=== PATIENT | male | born 1960 | race Caucasian/White ===

== ENCOUNTER → 2017-03-23 | Outpatient (CLI) | payer BC ==
[~2017-03-23] MED LIST: AMBIEN 5MG TABLE5 MG PO; ASPI325T6 PO; CIPRO 500MG TA500 MG PO; CLINDAMYCIN PO; COLACE 100100 MG/CAP PO; CYMBALTA PO; DAZIDOX20 MG PO; FENTANYL 25 MCG; FLOMAX 0.40.4 MG/CAP PO; FLOMAX PO; HYDROCODONE/APAP; HYDROCODONE/APAP PO; JALYN 0.5 MG-0.1 CAP PO; LAMOTRIGINE100 MG PO; LEXAPRO10 MG PO; LIPITOR 40MG TA40 MG PO; LORTAB 7.5/5001 TAB PO; MULTIPLE VITAMI1 CAP PO; NAPROSYN500 MG PO; NORCO 325 MG-7.1 TAB PO; OPANA ER20 MG PO; PERCOCET 325 MG1 TA2 PO; PROBIOTIC FORMU1 CAP PO; PROPYLTHIOURACIL; PYRIDIUM200 M1 PO; RESTORIL30 MG PO; SEPTRA DS 8001 TAB PO; TRILIPIX 135MG PO; VESICARE 5MG5 MG PO; VITAMINC1000TA; [UNRECOGNIZED DRUG - OTHER]; [UNRECOGNIZED DRUG - REMARK]
== END ==
LOC: BHSO 11:05
DX: F33.1 Major depressive disorder, recurrent, moderate (principal)

== ENCOUNTER → 2017-07-11 | Outpatient (CLI) | payer BC | LOC: MHCPAIN 08:31 | DX: G89.29 Other chronic pain (principal); M47.817 Spondylosis without myelopathy or radiculopathy, lumbosacral region; M53.3 Sacrococcygeal disorders, not elsewhere classified; M96.1 Postlaminectomy syndrome, not elsewhere classified | CPT/HCPCS: G0463 ==

== ENCOUNTER → 2017-07-13 | Outpatient (CLI) | payer BC | LOC: MHCPAIN 11:51 | DX: M53.3 Sacrococcygeal disorders, not elsewhere classified (principal); Z98.1 Arthrodesis status | CPT/HCPCS: G0260; J1040; Q9967 ==

== ENCOUNTER → 2017-08-21 | Outpatient (CLI) | payer BC | LOC: MHCPAIN 11:08 | DX: G89.29 Other chronic pain (principal); M47.27 Other spondylosis with radiculopathy, lumbosacral region; M53.3 Sacrococcygeal disorders, not elsewhere classified; M96.1 Postlaminectomy syndrome, not elsewhere classified | CPT/HCPCS: G0463 ==

== ENCOUNTER → 2017-09-12 | Outpatient (CLI) | payer BC | LOC: BHSO 09:10 | DX: F33.1 Major depressive disorder, recurrent, moderate (principal) | CPT/HCPCS: G0463 ==

== ENCOUNTER → 2018-01-11 | Outpatient (CLI) | payer MEDICARE, BC | LOC: BHSO 09:43 | DX: F31.81 Bipolar II disorder (principal) | CPT/HCPCS: G0463 ==

== ENCOUNTER → 2018-02-26 | Outpatient (CLI) | payer MEDICARE, BC | LOC: BHSO 08:25 | DX: F31.81 Bipolar II disorder (principal) ==

== ENCOUNTER → 2018-06-11 | Outpatient (CLI) | payer MEDICARE, BC | LOC: BHSO 07:58 | DX: F31.81 Bipolar II disorder (principal) | CPT/HCPCS: G0463 ==

== ENCOUNTER → 2018-12-10 | Outpatient (CLI) | payer MEDICARE, BC | LOC: BHSO 07:57 | DX: F31.81 Bipolar II disorder (principal) | CPT/HCPCS: G0463 ==

== ENCOUNTER → 2018-12-31 | Outpatient (CLI) | payer MEDICARE, BC | LOC: COL.RAD 14:00 | DX: G44.219 Episodic tension-type headache, not intractable (principal) ==

== ENCOUNTER 2019-01-29 21:49 | Emergency (ER) | payer MEDICARE, BC ==
[~2019-01-29] VITALS: Ht 170.2 cm; Wt 103.6 kg
[2019-01-29 21:55] VITALS: BP 145/78; TEMP 98.7
[2019-01-29 22:39] LABS: BASO % 0.6 % (0.0-2.0); EOS # 0.1 (0.0-0.7); EOS % 2.7 % (0-4.0); GRAN # 3.6 (1.4-6.5); GRAN % 68.8 % (42.2-75.2); HEMATOCRIT 41.9 % (42.0-52.0); HEMOGLOBIN 14.3 g/dl (13.5-18.0); LYMPH # 1.2 (1.2-3.4); LYMPH % 22.3 % (20.0-51.0); MEAN CELL VOLUME 85 fl (80.0-100.0); MEAN CORPUSCULAR HEMOGLOBIN 29 pg (27.0-31.0); MEAN CORPUSCULAR HGB CONC 34 g/dl (33.0-37.0); MEAN PLATELET VOLUME 8.2 fl (7.4-10.4); MONO # 0.3 (0.1-0.6); MONO % 5.2 % (1.7-9.3); PLATELET COUNT 295 K/mm3 (130-400); RED BLOOD COUNT 4.96 M/mm3 (4.20-5.60); REDCELL DISTRIBUTION WIDTH-CV 13.1 % (11.5-14.5)
[2019-01-29 22:52] LABS: ACETAMINOPHEN < 10 ug/mL (10-30); ALANINE AMINOTRANSFERASE 44 U/L (21-72); ALBUMIN 4.3 gm/dL (3.5-5.0); ALCOHOL(ethanol),MEDICAL < 10 mg/dL; ALKALINE PHOSPHATASE 82 U/L (50-136); ANION GAP 11 mmol/L (7-16); AST,SGOT 36 U/L (15-37); BILIRUBIN,TOTAL 0.5 mg/dL (0.0-1.0); BLOOD UREA NITROGEN 22 mg/dL (9-20); C-REACTIVE PROTEIN < 0.5 mg/dL (0.0-0.9); CALCIUM 10.1 mg/dL (8.4-10.2); CARBON DIOXIDE 25 mmol/L (22-30); CHLORIDE 107 mmol/L (98-107); CREATININE, serum 1.01 (0.66-1.25); GLUCOSE 169 mg/dL (74-106); POTASSIUM 3.7 mmol/L (3.4-5.0); SALICYLATE < 1.0 mg/dL; SODIUM 143 mmol/L (137-145); TOTAL PROTEIN 7.1 gm/dL (6.4-8.2)
[2019-01-29 23:01] LABS: ERYTHROCYTE SEDIMENTATION RATE 1 mm/hr (0-30)
[2019-01-30] MEDS ORDERED: LEXAPRO 10MG10 MG PO (00:07)
[2019-01-30] MEDS ORDERED: TRILIPIX 135MG PO (00:08)
[2019-01-30] MEDS ORDERED: LAMICTAL 100MG100 MG PO (00:08)
[2019-01-30] MEDS ORDERED: LIPITOR 40MG TA40 MG PO (00:09)
[2019-01-30] MEDS ORDERED: MEN'S MULTIVIT1 EAC1 PO (00:09)
[2019-01-30] MEDS ORDERED: VITAMINC1000TA (00:10)
[2019-01-30] MEDS ORDERED: PROBIOTIC-MAJOR PO (00:10)
[2019-01-30] MEDS ORDERED: MOBIC 7.5MG7.5 MG PO (00:11)
[2019-01-30] MEDS ORDERED: ROXICODONE15 MG PO (00:11)
[2019-01-30] MEDS ORDERED: FIORICET 325 MG1 TA1 PO (00:11)
[2019-01-30 00:20] VITALS: PULSE 66
== END 2019-01-30 00:20 | disposition home or self-care (01) ==
LOC: COL.ER 21:49
PROVIDERS: Emergency Medicine
DX: R51 Headache (principal); G89.29 Other chronic pain; I10 Essential (primary) hypertension; E78.00 Pure hypercholesterolemia, unspecified; F32.9 Major depressive disorder, single episode, unspecified
CPT/HCPCS: J2405; J3010; J7030

== ENCOUNTER → 2019-03-06 | Outpatient (CLI) | payer MEDICARE, BC ==
[~2019-03-06] MED LIST changes: +FIORICET 325 MG1 TA1 PO; +LAMICTAL 100MG100 MG PO; +LEXAPRO 10MG10 MG PO; +MEN'S MULTIVIT1 EAC1 PO; +MOBIC 7.5MG7.5 MG PO; +PROBIOTIC-MAJOR PO; +ROXICODONE15 MG PO
== END ==
LOC: COL.RAD 12:14
DX: M50.30 Other cervical disc degeneration, unspecified cervical region (principal); M50.21 Other cervical disc displacement, high cervical region; M25.78 Osteophyte, vertebrae; M48.02 Spinal stenosis, cervical region; M89.8X1 Other specified disorders of bone, shoulder

== ENCOUNTER → 2019-04-02 | Outpatient (CLI) | payer MEDICARE, BC | LOC: MHCPAIN 08:22 | DX: G89.29 Other chronic pain (principal); M47.812 Spondylosis without myelopathy or radiculopathy, cervical region; R51 Headache; M54.81 Occipital neuralgia | CPT/HCPCS: G0463 ==

== ENCOUNTER → 2019-04-04 | Outpatient (CLI) | payer MEDICARE, BC | LOC: MHCPAIN 12:49 | DX: M47.812 Spondylosis without myelopathy or radiculopathy, cervical region (principal); M54.12 Radiculopathy, cervical region ==

== ENCOUNTER 2019-05-13 11:36 | Emergency (ER) | payer MEDICARE, BC ==
[~2019-05-13] VITALS: Ht 170.2 cm; Wt 102.3 kg
[2019-05-13 12:02] VITALS: TEMP 97.1
[2019-05-13 12:35] LABS: BASO % 0.7 % (0.0-2.0); EOS # 0.2 (0.0-0.7); EOS % 3.6 % (0-4.0); GRAN # 2.6 (1.4-6.5); GRAN % 61.8 % (42.2-75.2); HEMATOCRIT 39.3 % (42.0-52.0); HEMOGLOBIN 13.4 g/dl (13.5-18.0); LYMPH # 1.1 (1.2-3.4); LYMPH % 26.1 % (20.0-51.0); MEAN CELL VOLUME 85 fl (80.0-100.0); MEAN CORPUSCULAR HEMOGLOBIN 29 pg (27.0-31.0); MEAN CORPUSCULAR HGB CONC 34 g/dl (33.0-37.0); MEAN PLATELET VOLUME 8.3 fl (7.4-10.4); MONO # 0.3 (0.1-0.6); MONO % 7.3 % (1.7-9.3); PLATELET COUNT 275 K/mm3 (130-400); RED BLOOD COUNT 4.63 M/mm3 (4.20-5.60); REDCELL DISTRIBUTION WIDTH-CV 13.1 % (11.5-14.5)
[2019-05-13 12:48] LABS: COLLECTION METHOD CLEAN CATCH
[2019-05-13 12:49] LABS: ALANINE AMINOTRANSFERASE 34 U/L (21-72); ALBUMIN 4.2 gm/dL (3.5-5.0); ALKALINE PHOSPHATASE 83 U/L (50-136); ANION GAP 7 mmol/L (7-16); AST,SGOT 32 U/L (15-37); BILIRUBIN,TOTAL 0.4 mg/dL (0.0-1.0); BLOOD UREA NITROGEN 17 mg/dL (9-20); CALCIUM 9.4 mg/dL (8.4-10.2); CARBON DIOXIDE 24 mmol/L (22-30); CHLORIDE 111 mmol/L (98-107); CREATININE, serum 0.91 (0.66-1.25); GLUCOSE 134 mg/dL (74-106); POTASSIUM 3.8 mmol/L (3.4-5.0); SODIUM 142 mmol/L (137-145); TOTAL PROTEIN 6.6 gm/dL (6.4-8.2)
[2019-05-13 12:52] LABS: ACETAMINOPHEN < 10 ug/mL (10-30); ALCOHOL(ethanol),MEDICAL < 10 mg/dL; SALICYLATE < 1.0 mg/dL
[2019-05-13 13:05] LABS: MUCOUS Present /lpf; PH 5 (5-8); SQUAMOUS EPITHELIAL None Seen /hpf; TRICYCLIC ANTIDEPRESS URINE NEGATIVE; URINE APPEARANCE Hazy; URINE BACTERIA None Seen /hpf; URINE BILIRUBIN Negative (NEGATIVE); URINE BLOOD Negative (NEGATIVE); URINE COLOR Yellow; URINE GLUCOSE Negative (NEGATIVE); URINE KETONE Negative (NEGATIVE); URINE LEUKOCYTE ESTERASE Negative (NEGATIVE); URINE NITRATE Negative (NEGATIVE); URINE PROTEIN(semi-quant) Negative (NEGATIVE); URINE RBC 0-2 /hpf
[2019-05-13] MEDS ORDERED: LAMICTAL150 MG PO (14:58)
[2019-05-13] MEDS ORDERED: ROXICODONE15 MG PO (15:01)
[2019-05-13 23:58] VITALS: BP 136/76; PULSE 74
== END 2019-05-13 23:56 ==
LOC: COL.ER 11:36
PROVIDERS: Nurse Practitioner
DX: R45.851 Suicidal ideations (principal); F32.9 Major depressive disorder, single episode, unspecified; E78.5 Hyperlipidemia, unspecified; Z88.2 Allergy status to sulfonamides

== ENCOUNTER → 2019-05-23 | Outpatient (CLI) | payer MEDICARE, BC ==
[~2019-05-23] MED LIST changes: +LAMICTAL150 MG PO
== END ==
LOC: BHSO 13:02
DX: F31.81 Bipolar II disorder (principal)
CPT/HCPCS: G0463

== ENCOUNTER → 2019-06-20 | Outpatient (CLI) | payer MEDICARE, BC | LOC: BHSO 09:38 | DX: F31.81 Bipolar II disorder (principal) | CPT/HCPCS: G0463 ==

== ENCOUNTER → 2019-07-23 | Outpatient (CLI) | payer MEDICARE, BC | LOC: BHSO 09:13 | DX: F31.81 Bipolar II disorder (principal) | CPT/HCPCS: G0463 ==

== ENCOUNTER → 2019-09-18 | Outpatient (CLI) | payer MEDICARE, BC | LOC: BHSO 08:44 | DX: F31.81 Bipolar II disorder (principal) | CPT/HCPCS: G0463 ==

== ENCOUNTER → 2020-03-10 | Outpatient (CLI) | payer MEDICARE, BC | LOC: BHSO 09:16 | DX: F31.81 Bipolar II disorder (principal) | CPT/HCPCS: G0463 ==

== ENCOUNTER → 2020-05-20 | Outpatient (CLI) | payer MEDICARE | LOC: BHSO 08:40 | DX: F31.81 Bipolar II disorder (principal) | CPT/HCPCS: G0463 ==

== ENCOUNTER 2020-09-24 14:00 | Outpatient (CLI) | payer MEDICARE ==
[~2020-09-24] VITALS: Ht 170.2 cm; Wt 100.0 kg
[2020-09-24] VITALS (9 sets, daily range): BP systolic 113–136; BP diastolic 67–76; PULSE 86–93; TEMP 98.8–99.7
[~2020-09-24 14:00] MED LIST changes: -MOBIC 7.5MG7.5 MG PO; +MOBIC15 MG PO
[2020-09-24] MEDS ORDERED: WELLBUTRIN XL300 M1 PO (15:05)
[2020-09-24] MEDS ORDERED: EFFEXOR XR75 MG/CAP PO (15:05)
[2020-09-24] MEDS ORDERED: ABILIFY 10MG TA10 MG PO (15:06)
--- NOTE | 2020-09-24 16:32 | NUR ---
TONEY SHIELDS WAS JUST IN TO ASSESS PATIENT.
--- NOTE | 2020-09-24 18:00 | NUR ---
Report was called to [place] SPANN on medical. [facility] after completion of BAM infusion and monitoring. Pt tolerated infusion well without any adverse reaction. Chest xray, lab draw, ekg, abg draw, and initiation of initial dose of decadron, IV fluids and a dose of zofran were completed prior to pt's transfer to floor. .
== END 2020-09-24 18:00 | disposition other institution (70) ==
LOC: EUO 14:00 → MEDICAL 16:18 → EUO 18:00
DX: U07.1 COVID-19 (principal)
CPT/HCPCS: J7050

== ENCOUNTER 2020-09-24 16:18 | Inpatient (IN) | payer MEDICARE ==
[~2020-09-24] VITALS: Ht 170.2 cm; Wt 90.9 kg
[~2020-09-24 16:18] MED LIST changes: +ABILIFY 10MG TA10 MG PO; +EFFEXOR XR75 MG/CAP PO; +WELLBUTRIN XL300 M1 PO
[2020-09-24 17:40] LABS: ARTERIAL BLD GAS O2 SATURATION 91.2 % (92-100); ARTERIAL BLD GAS TCO2 CT 23.5; ARTERIAL BLOOD GAS BASE EXCESS -0.1 (-2-2); ARTERIAL BLOOD GAS HCO3 22.5 meq/L (22-26); ARTERIAL BLOOD GAS PCO2 31.2 mmHg (35-45); ARTERIAL BLOOD GAS PO2 57.5 mmHg (80-100); ARTERIAL BLOOD GAS pH 7.48 (7.35-7.45)
[2020-09-24 17:49] LABS: BASO % 0.2 % (0.0-2.0); GRAN # 3.8 (1.4-6.5); GRAN % 81.3 % (42.2-75.2); HEMATOCRIT 41.4 % (42.0-52.0); HEMOGLOBIN 14.2 g/dl (13.5-18.0); LYMPH # 0.5 (1.2-3.4); LYMPH % 11.3 % (20.0-51.0); MEAN CELL VOLUME 81 fl (80.0-100.0); MEAN CORPUSCULAR HEMOGLOBIN 28 pg (27.0-31.0); MEAN CORPUSCULAR HGB CONC 34 g/dl (33.0-37.0); MEAN PLATELET VOLUME 8.5 fl (7.4-10.4); MONO # 0.3 (0.1-0.6); MONO % 6.8 % (1.7-9.3); PLATELET COUNT 294 K/mm3 (130-400); REDCELL DISTRIBUTION WIDTH-CV 13.7 % (11.5-14.5)
[2020-09-24 18:01] LABS: ALBUMIN 4.1 gm/dL (3.5-5.0); BILIRUBIN,TOTAL 0.9 mg/dL (0.0-1.0); CALCIUM 9.4 mg/dL (8.4-10.2); CREATININE, serum 1.11 (0.66-1.25); POTASSIUM 3.8 mmol/L (3.4-5.0)
[2020-09-24 18:14] VITALS: BP 117/62; PULSE 85; TEMP 98.3
[2020-09-24 18:21] LABS: C-REACTIVE PROTEIN 8.6 mg/dL (0.0-0.9)
--- NOTE | 2020-09-24 18:25 | NUR ---
Patient to room 305 by wheelchair from Express unit. Nurse oriented patient to room and call light. A&Ox3. Denies pain, reports being cold and SOB. VSS 3L NC O2. IV CDI, fluids infusing. Assessment complete. Patient ambulated with 1xassist to the bed and given a warm blanket. No further needs expressed from the patient. Call light within reach.
[2020-09-24 18:40] LABS: TROPONIN-I < 0.012 ng/mL (0.000-0.035)
[2020-09-24 19:56] VITALS: BP 127/65; PULSE 83; TEMP 99
[2020-09-25 03:36] VITALS: BP 116/65; PULSE 72; TEMP 97.6
[2020-09-25 06:27] LABS: GRAN # 4.2 (1.4-6.5); GRAN % 81.7 % (42.2-75.2); HEMATOCRIT 37.2 % (42.0-52.0); HEMOGLOBIN 12.7 g/dl (13.5-18.0); LYMPH # 0.5 (1.2-3.4); LYMPH % 10.3 % (20.0-51.0); MEAN CELL VOLUME 83 fl (80.0-100.0); MEAN CORPUSCULAR HEMOGLOBIN 28 pg (27.0-31.0); MEAN CORPUSCULAR HGB CONC 34 g/dl (33.0-37.0); MEAN PLATELET VOLUME 8.9 fl (7.4-10.4); MONO # 0.4 (0.1-0.6); MONO % 7.6 % (1.7-9.3); PLATELET COUNT 308 K/mm3 (130-400); RED BLOOD COUNT 4.49 M/mm3 (4.20-5.60); REDCELL DISTRIBUTION WIDTH-CV 13.7 % (11.5-14.5)
[2020-09-25 06:48] LABS: ALBUMIN 3.5 gm/dL (3.5-5.0); BILIRUBIN,TOTAL 0.7 mg/dL (0.0-1.0); CREATININE, serum 0.96 (0.66-1.25); POTASSIUM 3.8 mmol/L (3.4-5.0); TOTAL PROTEIN 6.2 gm/dL (6.4-8.2)
[2020-09-25 07:59] VITALS: BP 113/59; PULSE 76; TEMP 97.8
--- NOTE | 2020-09-25 08:00 | NUR ---
Assessment complete. Pt resting in bed, A&O x 4, reports intermittent chest/back pain with coughing and deep breathing. Oxymask in place with O2 at 6 L/min and sats 89-90%. Pt encouraged to take deep breaths and then has a coughing episode causing sats to decrease to 82%. O2 increased to 11 L/min to improve O2 sats to 91%. RT notified. Breath sounds diminished in all lung ko. IVF's infusing per orders through right AC site without s/s of complications. No further needs reported. Call light in reach.
--- NOTE | 2020-09-25 09:31 | NUR ---
The patient is COVID positive. SONU contacted the patient's room phone to discuss discharge plan. The patient lives alone in [place]. He states that his sisters: Marychuy Lorenz (ph#[phone]) and Roselyn (ph#[phone]) also live in [place]. He reports independence with ADLs and does not use any assistive devices, but he does have a cane if needed. The patient's PCP is Dr. Walter Carpenter and he receives his medications from [facility]. He reports some difficulties affording his meds. The patient does not have a DPOA-HC. He states that he is and has one child: April Jacob (ph#[phone]). April lives in [place]. SONU obtained April's number by contacting Roselyn. The patient plans to return home upon discharge. He is currently on 6 liters of oxygen. The patient states that if he needs oxygen when he returns home, then he would prefer to get it from [facility]. SONU contacted the patient's daughter, April, to review d/c plan. April reports that if the patient needs any assistance, then she would be able to come and stay with the patient to help him. SONU updated the patient's RN on next of kin and placed April's phone number on his chart. SONU to continue to follow.
[2020-09-25 11:34] VITALS: BP 112/61; PULSE 74; TEMP 98.6
--- NOTE | 2020-09-25 12:34 | NUR ---
O2 sats 88% on 11 L/min O2 via OM, resp not labored but if pt attempts to take deeper breaths then he starts coughing and saturation decreases more. O2 increased to 12 L/min and sats increase to 90-91%. Pt asking about taking a shower after lunch. This nurse informs pt that activity can cause the O2 levels to decrease further so we will evaluate whether a shower is safe following lunch. Pt verbalizes understanding. IVF's stopped and disconnected per orders.
--- NOTE | 2020-09-25 14:54 | NUR ---
Pt assisted from bed to chair with standby assist, increased dyspnea noted with activity. Bed bath provided and bed linens changed. No further needs reported. Call light in reach.
[2020-09-25 17:22] VITALS: BP 118/61; PULSE 81; TEMP 97.6
--- NOTE | 2020-09-25 18:05 | NUR ---
Pt resting in bed after eating dinner, denies pain or needs at this time. Sched abx administered per orders. O2 remains at 12 L/min via OM. Call light in reach.
--- NOTE | 2020-09-25 19:10 | NUR ---
Report given to MARIA INES Waters.
[2020-09-25 20:08] VITALS: BP 122/55; PULSE 83; TEMP 98
--- NOTE | 2020-09-25 21:53 | NUR ---
Initial shift assessment done- 02 sats 91% on 12Loxymask, states having back pain--getting roxicodone as ordered, umderstands we still need a stool specimen-pt states understanding-- requesting a snack for tonight-- states he has been eating well today- no nausea.
[2020-09-25 23:54] VITALS: BP 116/57; PULSE 70; TEMP 98.8
[2020-09-26 04:02] VITALS: BP 117/63; PULSE 70; TEMP 97.6
--- NOTE | 2020-09-26 04:53 | NUR ---
Has been resting well tonight- o2 sats 91-95% on the 12L/oxymask, no requests, quiet night.
--- NOTE | 2020-09-26 09:15 | NUR ---
Shift assessment complete. Pt lying flat in bed upon entry. A&Ox4. Heart RRR. Lung sounds diminished to auscultation. Frequent dry cough noted. Pt reports no BMs yesterday or this morning. Bowel sounds active all quadrants. Reports chest and lower back pain relieved by scheduled roxicodone. Also reports fatigue and SOA. HOB elevated to allow pt to sit more upright and encouraged to remain upright as much as he can tolerate. Right AC INT site w/o visible signs of complication, very difficult to flush. Currently on 15 lpm O2 oxymask with sats in low 90s. Denies needs at this time. Continuing to monitor.
[2020-09-26 11:52] VITALS: BP 114/65; PULSE 64; TEMP 97.3
--- NOTE | 2020-09-26 12:58 | NUR ---
This RN received call from the aid stating pt's O2 sat was 85% on 15 lpm oxymask. Upon entering pt room he was sitting up in bed, sats 87-88% at this time. Denied feeling SOA. SHOULDER JOINER notified. Set pt up on Airvo at 50 lpm 67% O2 with sats 91-92%. Dr. Simeon notified and pulmonology consult called per orders.
--- NOTE | 2020-09-26 14:23 | NUR ---
Patient will remain admitted today due to 02 needs of 15 lpm up from 12 lpm on 09/25/20
[2020-09-26 15:28] LABS: ARTERIAL BLD GAS O2 SATURATION 93.5 % (92-100); ARTERIAL BLD GAS TCO2 CT 28.1; ARTERIAL BLOOD GAS BASE EXCESS 2.7 (-2-2); ARTERIAL BLOOD GAS HCO3 26.9 meq/L (22-26); ARTERIAL BLOOD GAS PO2 67.2 mmHg (80-100); ARTERIAL BLOOD GAS pH 7.45 (7.35-7.45)
[2020-09-26 15:47] VITALS: BP 107/58; PULSE 66; TEMP 97.7
--- NOTE | 2020-09-26 17:42 | NUR ---
Pt has sat up in bed throughout shift with minimal complaint. Reports that scheduled roxicodone provides adequate pain relief and has declined PRN meds. Pt reports frequent attempts to take slow deep breaths and feels that this along with sitting upright has helped his SOA. Remains on Airvo at this time, 50 lpm 70% with sats stable in mid 90s. INT to right AC became clotted, new site started to right hand prior to Remdesevir administration. At this time, pt sitting up in bed eating dinner, requests moving to chair when finished. Continuing to monitor.
[2020-09-26 19:30] VITALS: BP 110/57; PULSE 70; TEMP 97.6
--- NOTE | 2020-09-26 20:30 | NUR ---
Initial shift assessment done- states back pain remains around 03/13,,getting Roxicodone BID as ordered, pt on Airvo 50L/69% o2,, sats 92-93 %, states is feeling somewhat better today, requesting a snack, no other requests.
[2020-09-26 23:32] VITALS: BP 119/54; PULSE 71; TEMP 98.1
[2020-09-27 03:22] VITALS: BP 111/58; PULSE 71; TEMP 97.9
--- NOTE | 2020-09-27 05:21 | NUR ---
Quiet night- continues on Airvo at 50L/70%, sats 91-92%, no requests, slept fair.
[2020-09-27 07:55] LABS: HEMATOCRIT 40.1 % (42.0-52.0); HEMOGLOBIN 13.2 g/dl (13.5-18.0); MEAN CELL VOLUME 85 fl (80.0-100.0); MEAN CORPUSCULAR HEMOGLOBIN 28 pg (27.0-31.0); MEAN CORPUSCULAR HGB CONC 33 g/dl (33.0-37.0); MEAN PLATELET VOLUME 8.6 fl (7.4-10.4); RED BLOOD COUNT 4.73 M/mm3 (4.20-5.60); REDCELL DISTRIBUTION WIDTH-CV 13.7 % (11.5-14.5)
[2020-09-27 08:01] LABS: PLATELET COUNT 419 K/mm3 (130-400)
[2020-09-27 08:05] LABS: CALCIUM 9.7 mg/dL (8.4-10.2); CREATININE, serum 0.86 (0.66-1.25); POTASSIUM 3.9 mmol/L (3.4-5.0)
[2020-09-27 08:28] VITALS: BP 115/60; PULSE 62; TEMP 98.5
--- NOTE | 2020-09-27 08:50 | NUR ---
Shift assessment complete. Pt resting in bed. No SOA. Continues to have dry cough. Lung sounds coarse, heart RRR, A&Ox4. Pain 8/10 to chest and back, relieved by scheduled [place]. Denies needs at this time. Continuing to monitor.
[2020-09-27 09:08] LABS: LYMPHOCYTE 5 % (20.0-51.0); METAMYELOCYTE 1 % (0-0); NEUTROPHILS 90 % (42.0-75.2)
[2020-09-27 09:09] LABS: PLATELET ESTIMATE INCREASED (NORMAL)
[2020-09-27 09:13] LABS: OVALOCYTES 1+
--- NOTE | 2020-09-27 10:33 | NUR ---
Patient's oxygen needs increased overnight from 15lpm to 50 lpm. Patient will not discharge at this time. Social work will continue to follow.
[2020-09-27 11:29] LABS: CLOSTRIDIUM DIFF A/B NEG; CLOSTRIDIUM DIFF A/B INTERP No C.diff present
[2020-09-27 12:00] VITALS: BP 115/58; PULSE 60; TEMP 98.4
[2020-09-27 15:07] VITALS: BP 115/67; PULSE 64; TEMP 97.5
--- NOTE | 2020-09-27 17:20 | NUR ---
No complaints today. Up to chair for a couple hours this afternoon. Improved SOA per pt. Type and cross collected and sent to lab for convalescent plasma. Sats still 91-92% on airvo 50 L 62%. Soft formed BM today negative for Cdiff.
[2020-09-27 19:56] VITALS: BP 118/56; PULSE 73; TEMP 97.6
[2020-09-28 00:23] VITALS: BP 114/56; PULSE 71; TEMP 97.6
--- NOTE | 2020-09-28 01:44 | NUR ---
RT called due to patients O2 being 89% on AirVo. This nurse educated patient on breathing techniques and when RT arrived patient was at 92%. No changes made by RT.
[2020-09-28 04:16] VITALS: BP 108/63; PULSE 59; TEMP 97.3
--- NOTE | 2020-09-28 04:55 | NUR ---
RT NOTIFIED OF PATIENTS O2 BEING 86%. RT COMING TO PATIENTS ROOM TO ADJUST HIS AIRVO
--- NOTE | 2020-09-28 08:30 | NUR ---
Shift assessment complete. On airvo 60 L 93%. Reports feeling better and not experiencing SOA at this time. Pain to lower back still /. INT to right hand w/o S/S complication. Lung sounds diminished to auscultation. Heart RRR. A&Ox4. Continuing to monitor.
[2020-09-28 08:35] VITALS: BP 116/63; PULSE 75; TEMP 97.4
[2020-09-28 12:13] VITALS: BP 132/83; PULSE 75; TEMP 97.6
--- NOTE | 2020-09-28 13:10 | NUR ---
The patient remains on 60 liters of oxygen. SONU asked the hospitalist for PT/OT to be ordered.
[2020-09-28 17:37] VITALS: BP 139/82; PULSE 86; TEMP 98.1
[2020-09-28 19:58] VITALS: BP 119/58; PULSE 75; TEMP 97.9
[2020-09-28 21:35] LABS: ARTERIAL BLD GAS O2 SATURATION 91.9 % (92-100); ARTERIAL BLD GAS TCO2 CT 23.2; ARTERIAL BLOOD GAS BASE EXCESS 0.4 (-2-2); ARTERIAL BLOOD GAS HCO3 22.3 meq/L (22-26); ARTERIAL BLOOD GAS PCO2 28.7 mmHg (35-45); ARTERIAL BLOOD GAS PO2 61.8 mmHg (80-100); ARTERIAL BLOOD GAS pH 7.51 (7.35-7.45)
--- NOTE | 2020-09-28 22:44 | NUR ---
Patient alert and oriented. complain of pain at 7/10 on upper abdomen due to cough. O2 saturation at 88-89% on airvo at 60L 88%. RN informed Respiratory therapy. ABG lab and chest xray was ordered. patient was placed on Bipap. patient resting in bed at this time. call light within reach.
[2020-09-29] VITALS (451 sets, daily range): BP systolic 108–136; BP diastolic 67–81; PULSE 69–100; TEMP 98–100; O2SAT 87–100
--- NOTE | 2020-09-29 03:32 | NUR ---
patient asleep comfortably in bed at this time.
--- NOTE | 2020-09-29 08:09 | NUR ---
Lying in bed with eyes open. Alert and oriented x4. Rates pain in back 03/13, will adminsiter scheduled pain medication. Has Bipap on at this time. Gets short of air with activity. Says that he is tired today. Lung sounds diminished. Denies additional needs at this time.
[2020-09-29 08:58] LABS: CALCIUM 9.7 mg/dL (8.4-10.2); CREATININE, serum 0.88 (0.66-1.25)
--- NOTE | 2020-09-29 09:13 | NUR ---
Provided report to MARIA INES Vargas in ICU.
--- NOTE | 2020-09-29 09:35 | NUR ---
Patient transported to ICU via bed by this nurse with respiratory and BiPap on with all belongings.
--- NOTE | 2020-09-29 09:43 | NUR ---
PT ARRIVED VIA BED FROM 3 FLOOR. PT ON BIPAP. PT IS VERY TIRED AND WEAK. PT'S VSS. RT BEDSIDE. PT ORIENTED X4. ABG DRAWN. BAH PLACED. FELIPE WITH AVS BEDSIDE TO PLACE PICC. PT STATES HE IS A FULL CODE. STATES SISTER IS HIS EMERGENCY CONTACT. NOW BEDSIDE. WILL CONTIUE TO MONITOR.
[2020-09-29 09:58] LABS: ARTERIAL BLD GAS O2 SATURATION 95.6 % (92-100); ARTERIAL BLD GAS TCO2 CT 25.1; ARTERIAL BLOOD GAS BASE EXCESS 0.1 (-2-2); ARTERIAL BLOOD GAS HCO3 23.9 meq/L (22-26); ARTERIAL BLOOD GAS PCO2 36.4 mmHg (35-45); ARTERIAL BLOOD GAS PO2 78.8 mmHg (80-100); ARTERIAL BLOOD GAS pH 7.44 (7.35-7.45)
[2020-09-29 10:52] LABS: HEMATOCRIT 39.7 % (42.0-52.0); HEMOGLOBIN 13.3 g/dl (13.5-18.0); MEAN CELL VOLUME 83 fl (80.0-100.0); MEAN CORPUSCULAR HEMOGLOBIN 28 pg (27.0-31.0); MEAN CORPUSCULAR HGB CONC 34 g/dl (33.0-37.0); MEAN PLATELET VOLUME 8.3 fl (7.4-10.4); PLATELET COUNT 352 K/mm3 (130-400); RED BLOOD COUNT 4.77 M/mm3 (4.20-5.60); REDCELL DISTRIBUTION WIDTH-CV 14.1 % (11.5-14.5)
[2020-09-29 11:52] LABS: BAND 2 % (0-10); LYMPHOCYTE 2 % (20.0-51.0); NEUTROPHILS 94 % (42.0-75.2); PLATELET ESTIMATE NORMAL (NORMAL)
[2020-09-29 11:54] LABS: OVALOCYTES 1+
--- NOTE | 2020-09-29 12:52 | NUR ---
RAFAL ORDERED DDIMER. DDIMER IS ELEVATED [id number]. RAFAL PHYSICIAN NOTIFIED AND ORDERED INCREASED LOVENOX, BUT ALSO STATED INFORM OUR PHYSICIANS INCASE ADDITIONAL ORDERS NEEDED. NOTIFIED AND MESSAGE LEFT FOR . AWAITING ORDERS AND CLARIFICATION FROM .
--- NOTE | 2020-09-29 13:45 | NUR ---
CT CHEST ORDERED BY . PT CHANGED TO NON REBREATHER WITH RT. PT TAKEN TO CT. VSS. PT BACK TO ROOM. NOTIFIED OF CT RESULTS.
--- NOTE | 2020-09-29 15:23 | NUR ---
PT'S DAUGHTER UPDATED. PLASMA STARTED ON PT.
[2020-09-29 15:58] LABS: ARTERIAL BLD GAS O2 SATURATION 96.4 % (92-100); ARTERIAL BLD GAS TCO2 CT 24.9; ARTERIAL BLOOD GAS BASE EXCESS 0.8 (-2-2); ARTERIAL BLOOD GAS HCO3 23.8 meq/L (22-26); ARTERIAL BLOOD GAS PCO2 33.6 mmHg (35-45); ARTERIAL BLOOD GAS PO2 81.4 mmHg (80-100); ARTERIAL BLOOD GAS pH 7.47 (7.35-7.45)
--- NOTE | 2020-09-29 22:55 | NUR ---
PT RESTING IN BED, MADE RN AWARE THAT BED IS SATURATED SECONDARY TO THE BAH LEAKING. BAH WAS ASSESSED AND IT WAS NOTED THAT IT WAS LEAKING. PT REQUESTED IT BE REMOVED. RN REMOVED AND PLACED A CONDOM CATH, PT TOLERATED WELL. PT DID C/O OF SLIGHT DAVIS BUT DENIES DOA AT THIS TIME, PT REMAINS ON THE VAPO-THERM AT THIS TIME AND STATES HE WILL USE BI-PAP WHEN HE IS READY FOR BED. BETTY JACOBO WAS UPDATED ABOUT BAH REMOVAL. PT REQUESTED MEDS FOR DAVIS PAIN AND COUGH. WILL CONTINUE TO MONITOR PT STATUS AND UPDATE PROVIDERS NEEDED.
[2020-09-30] VITALS (667 sets, daily range): BP systolic 105–121; BP diastolic 57–76; PULSE 70–86; TEMP 98–99.2; O2SAT 79–100
[2020-09-30 05:44] LABS: ARTERIAL BLD GAS O2 SATURATION 93.6 % (92-100); ARTERIAL BLD GAS TCO2 CT 25.7; ARTERIAL BLOOD GAS BASE EXCESS 1.3 (-2-2); ARTERIAL BLOOD GAS HCO3 24.6 meq/L (22-26); ARTERIAL BLOOD GAS PCO2 35.3 mmHg (35-45); ARTERIAL BLOOD GAS PO2 67.6 mmHg (80-100); ARTERIAL BLOOD GAS pH 7.46 (7.35-7.45)
--- NOTE | 2020-09-30 05:52 | NUR ---
DISCUSSED ABG RESULTS WITH RT AND PLANNED INTERVENTIONS.
[2020-09-30 07:57] LABS: HEMATOCRIT 37.6 % (42.0-52.0); HEMOGLOBIN 12.4 g/dl (13.5-18.0); MEAN CELL VOLUME 85 fl (80.0-100.0); MEAN CORPUSCULAR HEMOGLOBIN 28 pg (27.0-31.0); MEAN CORPUSCULAR HGB CONC 33 g/dl (33.0-37.0); MEAN PLATELET VOLUME 8.4 fl (7.4-10.4); PLATELET COUNT 368 K/mm3 (130-400); RED BLOOD COUNT 4.44 M/mm3 (4.20-5.60); REDCELL DISTRIBUTION WIDTH-CV 14.1 % (11.5-14.5)
[2020-09-30 08:07] LABS: CALCIUM 9.5 mg/dL (8.4-10.2); CREATININE, serum 0.8 (0.66-1.25); POTASSIUM 4.3 mmol/L (3.4-5.0)
[2020-09-30 09:22] LABS: BAND 6 % (0-10); BURR CELLS 1+; EOSINOPHIL 1 % (0-4); LYMPHOCYTE 5 % (20.0-51.0); NEUTROPHILS 87 % (42.0-75.2); OVALOCYTES 1+; PLATELET ESTIMATE NORMAL (NORMAL); SCHISTOCYTES 1+
--- NOTE | 2020-09-30 10:47 | NUR ---
Dairy Nutritionist faxed referral to [facility].
[2020-10-01] VITALS (594 sets, daily range): BP systolic 109–132; BP diastolic 69–91; PULSE 75–95; TEMP 98–98.5; O2SAT 78–99
[2020-10-01 05:33] LABS: HEMATOCRIT 38.9 % (42.0-52.0); HEMOGLOBIN 12.9 g/dl (13.5-18.0); MEAN CELL VOLUME 84 fl (80.0-100.0); MEAN CORPUSCULAR HEMOGLOBIN 28 pg (27.0-31.0); MEAN CORPUSCULAR HGB CONC 33 g/dl (33.0-37.0); MEAN PLATELET VOLUME 8.5 fl (7.4-10.4); PLATELET COUNT 397 K/mm3 (130-400); RED BLOOD COUNT 4.61 M/mm3 (4.20-5.60); REDCELL DISTRIBUTION WIDTH-CV 13.8 % (11.5-14.5)
[2020-10-01 05:45] LABS: CALCIUM 9.7 mg/dL (8.4-10.2); CREATININE, serum 0.9 (0.66-1.25); POTASSIUM 4.5 mmol/L (3.4-5.0)
[2020-10-01 05:47] LABS: ARTERIAL BLD GAS O2 SATURATION 93.3 % (92-100); ARTERIAL BLD GAS TCO2 CT 26.4; ARTERIAL BLOOD GAS BASE EXCESS 1.9 (-2-2); ARTERIAL BLOOD GAS HCO3 25.3 meq/L (22-26); ARTERIAL BLOOD GAS PCO2 35.9 mmHg (35-45); ARTERIAL BLOOD GAS PO2 66.8 mmHg (80-100); ARTERIAL BLOOD GAS pH 7.47 (7.35-7.45)
[2020-10-01 05:57] LABS: EOSINOPHIL 1 % (0-4); LYMPHOCYTE 3 % (20.0-51.0); NEUTROPHILS 93 % (42.0-75.2)
[2020-10-01 05:58] LABS: PLATELET ESTIMATE NORMAL (NORMAL)
[2020-10-01 06:01] LABS: BURR CELLS 1+; OVALOCYTES 1+
--- NOTE | 2020-10-01 06:38 | NUR ---
PT RESTING IN BED WATCHING DENIES PAIN OR DOA. STARTED NIGHT ON VAPOTHERM, THEN REQUESTED BI-PAP BECAUSE HE FELT "SLIGHTY SHORT OF BREATH". AFTER BEING PLACE ON BI-PAP PT REPORTED HE WAS FEELING BETTER. AROUND MID NIGHT PT WAS C/O 6-7/10 BACK PAIN AND WAS GIVEN PAIN MEDS. PT REPORTED PAIN HAD DIMINISHED. IT IS NOTED THAT PO2 ON AM GAS IS LOWER THAT PREVIOUS GAS, WILL PASS ON INFO IN REPORT AND CONTINUE TO MONTIOR AT THIS TIME.
--- NOTE | 2020-10-01 10:02 | NUR ---
Cris with [facility] states that they may have a bed for patient tomorrow. Worker faxed clinical updates and met with patient. Patient is aware of the [facility] plan and gives permission for worker to contact his daughter, April, and discuss plan. Patient is being moved out of ICU to Covid unit in the hospital. flow worker left a phone message for April to call.
--- NOTE | 2020-10-01 10:18 | NUR ---
harness worker spoke with daughter, April, and gave information on plans for a [facility] transfer, possibly tomorrow. Worker answered questions and provided support to April. April will try and obtain patient's cell phone and get it to the hospital. Worker confirmed that Cris with [facility] is planning for an opening at the [facility] tomorrow and that she will make contact with patient's daughter today. Worker contacted [facility] and advise of possible transfer tomorrow.
--- NOTE | 2020-10-01 19:45 | NUR ---
Patient resting in bed watching TV. Tolerating Airvo well. Denies any increased shortness of air or pain at this time. Will continue to monitor; call light left within reach.
[2020-10-02] VITALS (847 sets, daily range): BP systolic 108–135; BP diastolic 78–84; PULSE 62–88; TEMP 97.8–99; O2SAT 62–100
[2020-10-02 06:17] LABS: ARTERIAL BLD GAS O2 SATURATION 93.8 % (92-100); ARTERIAL BLD GAS TCO2 CT 24.3; ARTERIAL BLOOD GAS BASE EXCESS -0.8 (-2-2); ARTERIAL BLOOD GAS HCO3 23.2 meq/L (22-26); ARTERIAL BLOOD GAS PCO2 36.7 mmHg (35-45); ARTERIAL BLOOD GAS PO2 71.3 mmHg (80-100); ARTERIAL BLOOD GAS pH 7.42 (7.35-7.45)
[2020-10-02 06:28] LABS: HEMATOCRIT 41.6 % (42.0-52.0); HEMOGLOBIN 13.6 g/dl (13.5-18.0); MEAN CELL VOLUME 86 fl (80.0-100.0); MEAN CORPUSCULAR HEMOGLOBIN 28 pg (27.0-31.0); MEAN CORPUSCULAR HGB CONC 33 g/dl (33.0-37.0); MEAN PLATELET VOLUME 8.9 fl (7.4-10.4); PLATELET COUNT 465 K/mm3 (130-400); RED BLOOD COUNT 4.82 M/mm3 (4.20-5.60); REDCELL DISTRIBUTION WIDTH-CV 13.9 % (11.5-14.5)
[2020-10-02 06:41] LABS: CALCIUM 10.3 mg/dL (8.4-10.2); CREATININE, serum 0.85 (0.66-1.25); POTASSIUM 4.5 mmol/L (3.4-5.0)
--- NOTE | 2020-10-02 07:00 | NUR ---
REPORT RECEIVED FROM IDALMIS SPANN. PT RESTING IN BED WITH BIPAP ON. WILL CONTINUE TO MONITOR.
[2020-10-02 07:21] LABS: BAND 2 % (0-10); LYMPHOCYTE 6 % (20.0-51.0); METAMYELOCYTE 3 % (0-0); NEUTROPHILS 89 % (42.0-75.2)
[2020-10-02 07:22] LABS: OVALOCYTES 1+; PLATELET ESTIMATE INCREASED (NORMAL)
[2020-10-02 07:23] LABS: BURR CELLS 1+
--- NOTE | 2020-10-02 10:09 | NUR ---
SW update. [facility] bed still pending at [facility], called and confirmed with Gillian. Will continue to follow.
--- NOTE | 2020-10-02 15:14 | NUR ---
Spoke with Pey[facility] and She believe that they will have a bed over the weekend. Will check in with her Tomorrow. 03:15 p.m.
--- NOTE | 2020-10-02 21:20 | NUR ---
Reporing lower back pain which is chronic in nature. PRN oxycodone administered. Assisted with changing his linens, however refused offer for a bedbath. Wishing to go to bed at this time and assisted with placing BIPAP for the night. Denies any other needs or concerns at this time. Will continue to monitor; Call light left within reach.
[2020-10-03] VITALS (573 sets, daily range): BP systolic 127–136; BP diastolic 66–88; PULSE 59–98; TEMP 97.8–98.8; O2SAT 59–100
[2020-10-03 04:59] LABS: HEMATOCRIT 41.5 % (42.0-52.0); HEMOGLOBIN 13.7 g/dl (13.5-18.0); MEAN CELL VOLUME 84 fl (80.0-100.0); MEAN CORPUSCULAR HEMOGLOBIN 28 pg (27.0-31.0); MEAN CORPUSCULAR HGB CONC 33 g/dl (33.0-37.0); MEAN PLATELET VOLUME 8.8 fl (7.4-10.4); PLATELET COUNT 444 K/mm3 (130-400); RED BLOOD COUNT 4.93 M/mm3 (4.20-5.60); REDCELL DISTRIBUTION WIDTH-CV 13.7 % (11.5-14.5)
[2020-10-03 05:13] LABS: CALCIUM 10.3 mg/dL (8.4-10.2); CREATININE, serum 0.7 (0.66-1.25); POTASSIUM 4.6 mmol/L (3.4-5.0)
[2020-10-03 05:42] LABS: ANISOCYTOSIS 1+; BAND 2 % (0-10); HYPOCHROMIA 1+; LYMPHOCYTE 7 % (20.0-51.0); NEUTROPHILS 89 % (42.0-75.2); PLATELET ESTIMATE INCREASED (NORMAL)
--- NOTE | 2020-10-03 08:00 | NUR ---
Shift assessment complete at this time. Plan of care reviewed at bedside with patient and via telephone with family. Additional time taken to address any other needs or concerns. Vitals stable at this time. Bed in low position, call light within reach.
--- NOTE | 2020-10-03 11:58 | NUR ---
Sw update: Patient has bed available for [facility]. Accepting PA is Dr. Arevalo, Room 121. Transport recommended for 01:30 p.m. Nurse to Nurse is . Notifed of acceptance. SW following for transfer.
--- NOTE | 2020-10-03 12:18 | NUR ---
Notified Dtr Summer of transfer, no concerns reported.
== END 2020-10-03 13:30 | DRG 177 ==
LOC: MEDICAL 16:18 → ICU 16:18 → MEDICAL 23:00 → ICU 09-29 09:50
PROVIDERS: Hospitalist; Internal Medicine Pulmonary Disease; Physician Assistant; Student in an Organized Health Care Education/Training Program; ADMIT Internal Medicine
PROC: XW033E5 Introduction of Remdesivir Anti-infective into Peripheral Vein, Percutaneous Approach, New Technology Group 5 (ICD-10-PCS; principal; 2020-09-25)
PROC: 02HV33Z Insertion of Infusion Device into Superior Vena Cava, Percutaneous Approach (ICD-10-PCS; 2020-09-29)
PROC: 5A09457 Assistance with Respiratory Ventilation, 24-96 Consecutive Hours, Continuous Positive Airway Pressure (ICD-10-PCS; 2020-09-29)
DX: U07.1 COVID-19 (principal); J12.82 Pneumonia due to coronavirus disease 2019; J96.01 Acute respiratory failure with hypoxia; A08.39 Other viral enteritis; R65.10 Systemic inflammatory response syndrome (SIRS) of non-infectious origin without acute organ dysfunction; R11.2 Nausea with vomiting, unspecified; G89.29 Other chronic pain; M54.9 Dorsalgia, unspecified; E78.5 Hyperlipidemia, unspecified; F32.9 Major depressive disorder, single episode, unspecified; R19.7 Diarrhea, unspecified; Z96.642 Presence of left artificial hip joint; D47.3 Essential (hemorrhagic) thrombocythemia; Z90.49 Acquired absence of other specified parts of digestive tract; Z90.89 Acquired absence of other organs
CPT/HCPCS: 99222-AI; 99232-AI; 99233-AI; 99239; C1751; C1892; J0696; J1100; J1650; J2405; J7030; J7050; J8540; Q9967

== ENCOUNTER → 2020-12-03 | Outpatient (CLI) | payer MEDICARE | LOC: COL.RAD 08:00 | DX: Z01.812 Encounter for preprocedural laboratory examination (principal); Z86.16 Personal history of COVID-19; Z90.49 Acquired absence of other specified parts of digestive tract; I10 Essential (primary) hypertension | CPT/HCPCS: Q9967 ==

== ENCOUNTER → 2021-05-13 | Outpatient (CLI) | payer MEDICARE ==
[2021-05-14 11:16] LABS: ANA SCREEN with REFLEX Negative (Negative)
[2021-05-15 15:40] LABS: ANGIOTENSIN CONVERTING ENZYME 31 U/L (16 - 85)
[2021-05-18 09:19] LABS: ANTISCLERODERMA-70 AB XXX
== END ==
LOC: COL.LAB 10:53
DX: J84.10 Pulmonary fibrosis, unspecified (principal)

== ENCOUNTER → 2021-05-19 | Outpatient (CLI) | payer MEDICARE | LOC: COL.LAB 10:29 | DX: J84.10 Pulmonary fibrosis, unspecified (principal) ==

== ENCOUNTER → 2022-10-12 | Outpatient (CLI) | payer MEDICARE | LOC: COL.RAD 10-06 15:45 | DX: R22.1 Localized swelling, mass and lump, neck (principal) ==

== ENCOUNTER → 2023-10-27 | Outpatient (CLI) | payer MEDICARE ==
[~2023-10-27] MED LIST changes: +Iohexol 300 - 100 ML VIAL IV ONE; +NS 100 ML IV SCH
== END ==
LOC: COL.RAD 13:43
DX: J84.10 Pulmonary fibrosis, unspecified (principal)
CPT/HCPCS: Q9967